=== PATIENT | female | born 1965 | race Caucasian/White ===

== ENCOUNTER → 2018-01-11 | Day surgery (SDC) | payer OTHER ==
[2018-01-07 10:18] VITALS: Ht 170.2 cm; Wt 146.8 kg
[~2018-01-11] VITALS: Ht 170.2 cm; Wt 146.8 kg
[~2018-01-11] MED LIST: 500ML BSS 0.3ML EPI 1:1000PF IRRIG ONE; ACETAMINOPHEN 325 MG TAB PO PRN; AMVISC PLUS 0.8ML SYRINGE INT OCU ONE; ATROPINE SULFATE 0.1 MG/ML 5ML SYR IV PRN; BSS FLUSH ONE; DILT120C68 PO; EpHEDrine SULFATE INJ 50 MG/ML AMP IV PRN; EpINEphrine INJ 1MG/ML AMP 1 MG/ML AMP ONE; FURO-85 PO; LACTATED RINGER'S 1000ML 500 ML IV SCH; LIDOCAINE 3.5% OPH GEL PER APPLICATION CHARGE ONE; LIDOCAINE HCL 1% MPF 2 ML VIAL ONE; LISI-729 PO; LPT/40 PO; MIDAZOLAM HCL 1 MG/ML 2ML VIAL ONE; OCUCOAT 1 ML SOLN IO ONE; POVIDONE-IODINE OP SOLN 30 ML BTL ONE; PROPARACAINE 0.5% OP SOLN PER DROP CHARGE OPR SCH; TOBRAMYCIN/DEXAMETHASONE OPH OINT PER APPLN CHARGE ONE; VNTHFA/IN INH; WARF5TAB7 PO
[2018-01-11] MEDS: PHENYLEPHRINE HCL 2.5% OP SOLN PER DROP CHARGE OPR SCH ×2 (06:47→06:55)
[2018-01-11] MEDS: TROPICAMIDE 1% OP SOLN PER DROP CHARGE OPR SCH ×2 (06:48→06:56)
[2018-01-11] MEDS: CYCLOPENTOLATE HCL 1% OP SOLN PER DROP CHARGE OPR SCH ×2 (06:50→06:57)
[2018-01-11] MEDS: KETOROLAC 0.5% OP SOLN PER DROP CHARGE OPR SCH ×2 (06:51→06:58)
[2018-01-11] MEDS: GATIFLOXACIN OP SOLN PER DROP CHARGE OPR SCH ×2 (06:52→07:00)
--- NOTE | 2018-01-11 07:00 | History & Physical Bridge - SC ---
H&P Re-Evaluation Bridge Note: I have examined the patient, reviewed the History & Physical and in the interval since the performance of the History & Physical I have noted the following changes of clinical significance: Diagnosis: Right Cataract Procedure: Right Cataract Removal with Lens Implant No changes noted
--- NOTE | 2018-01-11 07:46 | [facility] Operative Report ---
Operative Report Date of Service January 11, 2018. Operative Report 1. PREOPERATIVE DIAGNOSIS: Cataract of the right eye. 2. POSTOPERATIVE DIAGNOSIS: Same. 3. PROCEDURE: Phacoemulsification with intraocular lens implantation of the right eye. SURGEON: Dr. Gee Bennett. ANESTHESIA: Topical Lidocaine gel, 1% Non- Preserved intracameral Lidocaine, and monitored intravenous sedation. INDICATIONS FOR THE PROCEDURE: The patient is a 52 - year-old female with a history of cataract of the right eye causing significant visual impairment. The details of the proposed procedure were explained to the patient who asked appropriate questions and following discussion of all risks, benefits and alternatives agreed to have the procedure done. 4. OPERATION AND FINDINGS: DESCRIPTION OF PROCEDURE: After informed consent was obtained, the patient was brought to the Operating Room at the [facility]. The patient was placed in a supine position and then the right eye was prepped and draped in the usual sterile fashion for intraocular surgery. A drop of topical Lidocaine gel was placed in the operative eye. A wire lid speculum was then placed in the fornices. A corneal paracentesis was then created temporally. The Non-Preserved Lidocaine was then instilled into the anterior chamber. The anterior chamber was then pressurized with viscoelastic. A 2.0 mm clear corneal incision was then created temporally. A cystotome was inserted into the anterior chamber and used to create a tear in the anterior lens capsule. This capsular tear was then used to create a small flap and the flap was dragged in a counterclockwise direction in order to create a continuous curvilinear capsulorrhexis. Hydrodissection was accomplished with balanced salt solution. Phacoemulsification of the lens nucleus was then performed in a standard [id number]-yig-xtegddd technique. The phaco time was 9 seconds with an average power of 5 %. The remaining cortical material was removed using irrigation aspiration. The capsular bag was then filled with viscoelastic. A Bausch [employer] Lomb MI60L +23.0 diopters lens was then loaded into the injector and injected into the capsular bag. The remaining viscoelastic was removed with the irrigation aspiration handpiece. The wound was hydrated and then checked and found to be watertight. The intraocular pressure was checked and found to be adequate. The wire lid speculum was removed and the patient's face was cleaned and dried. TobraDex ointment was placed in the inferior fornix. The patient was discharged to the Recovery Room having tolerated the procedure well. There were no complications. The patient will be seen tomorrow in the office for follow-up. I attest to the content of the Intraoperative Record and any orders documented therein. Any exceptions are noted below.
--- NOTE | 2018-01-11 07:46 | Discharge Instructions-SurgCtr ---
Discharge Instructions Date of Service January 11, 2018. Visit Reason for Visit: Cataract Right Eye Discharge Discharge Diagnosis / Problem: cataract Discharge Goals Goal(s): Improve function Activity Recommendations Activity Limitations: per Instructions/Follow-up section Anesthesia . Post Anesthesia Instructions: If you have had General Anesthesia or IV Sedation: * Do not drive today. * Resume driving when surgeon permits. * Do not make important decisions or sign legal documents today. * Call surgeon for: 1. Temperature elevations greater than 101 degrees F. 2. Uncontrollable pain. 3. Excessive bleeding. 4. Persistent nausea and vomiting. 5. Medication intolerance (nausea, vomiting or rash). * For nausea and vomiting use only clear liquids such as: tea, soda, bouillon until nausea subsides, then gradually increase diet as tolerated. * If you have any concerns or questions, call your surgeon's office. If physician is unavailable and it is an emergency, call 911 or go to the nearest emergency room. . Diet Recommendations Home Diet: resume previous diet Procedures Procedures Performed: Right Cataract Phacoemulsification With Intraocular Lens Implant Pending Studies Studies pending at discharge: no Medical Emergencies . Who to Call and When: Medical Emergencies: If at any time you feel your situation is an emergency, please call 911 immediately. . Non-Emergent Contact Non-Emergency issues call your: Oil Change Technician . . "Provider Documentation" section prepared by Gee Bennett. .
[2018-01-11 07:50] VITALS: TEMP 36.8
--- NOTE | 2018-01-11 07:57 | Anesthesia Progress Nt - [facility] ---
Anesthesia Post Op Note Date & Time January 11, 2018 at 07:57 Vital Signs Pain Intensity: 0 Vital Signs Past 12 Hours Date Time Temp Pulse Resp B/P (MAP) Pulse Ox O2 Delivery O2 Flow Rate FiO2 01/11/18 07:50 36.8 54 18 93/46 (62) 98 Room Air 01/11/18 06:20 37.0 57 16 118/78 (91) 99 Room Air Notes Mental Status: alert / awake / arousable, participated in evaluation Pt Amnestic to Procedure: Yes Nausea / Vomiting: adequately controlled Pain: adequately controlled Airway Patency, RR, SpO2: stable & adequate BP & HR: stable & adequate Hydration State: stable & adequate Anesthetic Complications: no major complications apparent
[2018-01-11 08:13] VITALS: BP 116/61; PULSE 54; O2SAT 99
== END | disposition home or self-care (01) ==
LOC: X.SURG 06:07
PROVIDERS: ATTEND Ophthalmology
DX: H26.9 Unspecified cataract (principal); I48.91 Unspecified atrial fibrillation; I10 Essential (primary) hypertension; K21.9 Gastro-esophageal reflux disease without esophagitis; F17.200 Nicotine dependence, unspecified, uncomplicated; E78.5 Hyperlipidemia, unspecified; E66.9 Obesity, unspecified; Z68.43 Body mass index [BMI] 50.0-59.9, adult; Z79.01 Long term (current) use of anticoagulants

== ENCOUNTER → 2018-01-25 | Day surgery (SDC) | payer OTHER ==
[2018-01-20 13:16] VITALS: Ht 170.2 cm; Wt 146.8 kg
[~2018-01-25] VITALS: Ht 170.2 cm; Wt 146.8 kg
[~2018-01-25] MED LIST changes: +PROPARACAINE 0.5% OP SOLN PER DROP CHARGE OPL SCH; -PROPARACAINE 0.5% OP SOLN PER DROP CHARGE OPR SCH
--- NOTE | 2018-01-25 10:26 | History & Physical Bridge - SC ---
H&P Re-Evaluation Bridge Note: I have examined the patient, reviewed the History & Physical and in the interval since the performance of the History & Physical I have noted the following changes of clinical significance: Diagnosis: Left Cataract Procedure: Left Cataract Removal with Lens Implant No changes noted
[2018-01-25] MEDS: PHENYLEPHRINE HCL 2.5% OP SOLN PER DROP CHARGE OPL SCH ×2 (10:29→10:35)
[2018-01-25] MEDS: TROPICAMIDE 1% OP SOLN PER DROP CHARGE OPL SCH ×2 (10:30→10:36)
[2018-01-25] MEDS: CYCLOPENTOLATE HCL 1% OP SOLN PER DROP CHARGE OPL SCH ×2 (10:31→10:37)
[2018-01-25] MEDS: KETOROLAC 0.5% OP SOLN PER DROP CHARGE OPL SCH ×2 (10:32→10:38)
[2018-01-25] MEDS: GATIFLOXACIN OP SOLN PER DROP CHARGE OPL SCH ×2 (10:33→10:43)
--- NOTE | 2018-01-25 11:00 | [facility] Operative Report ---
Operative Report Date of Service January 25, 2018. Operative Report 1. PREOPERATIVE DIAGNOSIS: Cataract of the left eye. 2. POSTOPERATIVE DIAGNOSIS: Same. 3. PROCEDURE: Phacoemulsification with intraocular lens implantation of the left eye. SURGEON: Dr. Gee Bennett. ANESTHESIA: Topical Lidocaine gel, 1% Non- Preserved intracameral Lidocaine, and monitored intravenous sedation. INDICATIONS FOR THE PROCEDURE: The patient is a 52 - year-old female with a history of cataract of the left eye causing significant visual impairment. The details of the proposed procedure were explained to the patient who asked appropriate questions and following discussion of all risks, benefits and alternatives agreed to have the procedure done. 4. OPERATION AND FINDINGS: DESCRIPTION OF PROCEDURE: After informed consent was obtained, the patient was brought to the Operating Room at the [facility]. The patient was placed in a supine position and then the left eye was prepped and draped in the usual sterile fashion for intraocular surgery. A drop of topical Lidocaine gel was placed in the operative eye. A wire lid speculum was then placed in the fornices. A corneal paracentesis was then created temporally. The Non-Preserved Lidocaine was then instilled into the anterior chamber. The anterior chamber was then pressurized with viscoelastic. A 2.0 mm clear corneal incision was then created temporally. A cystotome was inserted into the anterior chamber and used to create a tear in the anterior lens capsule. This capsular tear was then used to create a small flap and the flap was dragged in a counterclockwise direction in order to create a continuous curvilinear capsulorrhexis. Hydrodissection was accomplished with balanced salt solution. Phacoemulsification of the lens nucleus was then performed in a standard gmzwoo-ndx-ahcqqew technique. The phaco time was 9 seconds with an average power of 8 %. The remaining cortical material was removed using irrigation aspiration. The capsular bag was then filled with viscoelastic. A Bausch & Lomb MI60L +22.0 diopters lens was then loaded into the injector and injected into the capsular bag. The remaining viscoelastic was removed with the irrigation aspiration handpiece. The wound was hydrated and then checked and found to be watertight. The intraocular pressure was checked and found to be adequate. The wire lid speculum was removed and the patient's face was cleaned and dried. TobraDex ointment was placed in the inferior fornix. The patient was discharged to the Recovery Room having tolerated the procedure well. There were no complications. The patient will be seen tomorrow in the office for follow-up. I attest to the content of the Intraoperative Record and any orders documented therein. Any exceptions are noted below.
--- NOTE | 2018-01-25 11:00 | Discharge Instructions-SurgCtr ---
Discharge Instructions Date of Service January 25, 2018. Visit Reason for Visit: Cataract Left Eye Discharge Discharge Diagnosis / Problem: cataract Discharge Goals Goal(s): Improve function Medications Stopped Medications Name(s): lasix Activity Recommendations Activity Limitations: per Instructions/Follow-up section Anesthesia . Post Anesthesia Instructions: If you have had General Anesthesia or IV Sedation: * Do not drive today. * Resume driving when surgeon permits. * Do not make important decisions or sign legal documents today. * Call surgeon for: 1. Temperature elevations greater than 101 degrees F. 2. Uncontrollable pain. 3. Excessive bleeding. 4. Persistent nausea and vomiting. 5. Medication intolerance (nausea, vomiting or rash). * For nausea and vomiting use only clear liquids such as: tea, soda, bouillon until nausea subsides, then gradually increase diet as tolerated. * If you have any concerns or questions, call your surgeon's office. If physician is unavailable and it is an emergency, call 911 or go to the nearest emergency room. . Diet Recommendations Home Diet: resume previous diet Procedures Procedures Performed: Left Cataract Phacoemulsification With Intraocular Lens Implant Pending Studies Studies pending at discharge: no Medical Emergencies . Who to Call and When: Medical Emergencies: If at any time you feel your situation is an emergency, please call 911 immediately. . Non-Emergent Contact Non-Emergency issues call your: Horse Exerciser . . "Provider Documentation" section prepared by Gee Bennett. .
[2018-01-25 11:02] VITALS: TEMP 36.2
--- NOTE | 2018-01-25 11:12 | Anesthesia Progress Nt - [facility] ---
Anesthesia Post Op Note Date & Time January 25, 2018 at 11:11 Vital Signs Pain Intensity: 0 Vital Signs Past 12 Hours Date Time Temp Pulse Resp B/P (MAP) Pulse Ox O2 Delivery O2 Flow Rate FiO2 01/25/18 11:02 36.2 82 16 105/64 (78) 100 Room Air 01/25/18 10:12 36.9 65 16 124/83 (97) 99 Room Air Notes Mental Status: alert / awake / arousable, participated in evaluation Pt Amnestic to Procedure: Yes Nausea / Vomiting: adequately controlled Pain: adequately controlled Airway Patency, RR, SpO2: stable & adequate BP & HR: stable & adequate Hydration State: stable & adequate Anesthetic Complications: no major complications apparent
[2018-01-25 11:21] VITALS: BP 111/67; PULSE 68; O2SAT 100
== END | disposition home or self-care (01) ==
LOC: X.SURG 10:00
PROVIDERS: ATTEND Ophthalmology
DX: H26.9 Unspecified cataract (principal); I10 Essential (primary) hypertension; K21.9 Gastro-esophageal reflux disease without esophagitis; I48.91 Unspecified atrial fibrillation; Z88.5 Allergy status to narcotic agent

== ENCOUNTER → 2018-04-19 | Outpatient (CLI) | payer OTHER ==
[~2018-04-19] MED LIST changes: -500ML BSS 0.3ML EPI 1:1000PF IRRIG ONE; -ACETAMINOPHEN 325 MG TAB PO PRN; -AMVISC PLUS 0.8ML SYRINGE INT OCU ONE; -ATROPINE SULFATE 0.1 MG/ML 5ML SYR IV PRN; -BSS FLUSH ONE; -EpHEDrine SULFATE INJ 50 MG/ML AMP IV PRN; -EpINEphrine INJ 1MG/ML AMP 1 MG/ML AMP ONE; -LACTATED RINGER'S 1000ML 500 ML IV SCH; -LIDOCAINE 3.5% OPH GEL PER APPLICATION CHARGE ONE; -LIDOCAINE HCL 1% MPF 2 ML VIAL ONE; -MIDAZOLAM HCL 1 MG/ML 2ML VIAL ONE; -OCUCOAT 1 ML SOLN IO ONE; -POVIDONE-IODINE OP SOLN 30 ML BTL ONE; -PROPARACAINE 0.5% OP SOLN PER DROP CHARGE OPL SCH; -TOBRAMYCIN/DEXAMETHASONE OPH OINT PER APPLN CHARGE ONE
--- NOTE | 2018-04-20 06:35 | PAP/PSG TECHNICIAN REPORT ---
[facility] Associate Financial Planner Polysomnogram Report Study name: None Report date: 04/20/2018 Study date: 04/19/2018 Referring Physician: Dr. Brewer Name: MAYTE CHRISTIE Interpreting Physician: Dayana Brewer M.D. Date of : 1965 Associate Financial Planner: Yann Joiner RPSGT. Sex: Female Age: 53 StudyType: PSG Weight: 324 lbs Height: 53 years, Height 5' 7" BMI: 50.74 Medications: LIPITOR 40 MG, LASIX 20 MG, COUMADIN 5 MG, VENTOLIN HFA 108 90 JONO, LISINOPRIL 5 MG, Patient History PATIENT HAS HISTORY OF PAROXYSMAL AFIB, SNORING AND HYPERTENION. SHE ALSO HAS HISTORY OF DAYTIME SLEEPINESS AND LACK OF ENERGY. SHE IS HERE TODAY FOR AN EVALUATION FOR MAYELIN. ESS = 8 RM 5 Parameters Monitored NPSG: E1-M2, E2-M1, Fp1-M2, Fp2-M1, F3-M2, F4-M2, F4-M1, C3-M2, C4-M2, C4-M1, O1-M2, O2-M2, O2-M1, T3-M2, T4-M1, P3-M2, P4-M1, CHIN1, CHIN2, HR, EKG, Legs, PFLOW, SNOR, FLOW, CFLOW, Tidal Volume, THOR, ABDO, SpO2, PLTH, CPRESS, ETCO2 Wave, ETCO2, pH Sleep Architecture Sleep Stages Time at Lights Off 9:02:51 PM STAGES Time (min.) TST (%) Time at Lights On 5:19:51 AM Wake 146.0 -- Total Recording Time (TRT) 497.50 min. N1 34.0 10 Total Sleep Period (TSP) 392.5 min. N2 200.5 57 Total Sleep Time (TST) 351.0min. N3 60.5 17 Awake Time 146.5 min. REM 56.0 16 Wake after Sleep Onset 47.0 min. Sleep Efficiency (SE) 71 % Sleep Onset Latency (DEBORAH) 99.0 min. Number of Stage 1 Shifts None Awakenings 28 Stage Changes 89 Number of REM periods 4 REM 56.0 16 REM Latency 109.5 min. NREM 295.0 84 Body Position Analysis Supine Right Left Side Prone Vertical Total Sleep Time (min.) 98.6 295.1 44.8 339.85 0.0 0.0 Total Sleep Time (%) 3% 84% 13% 97 0% N/A% Total Sleep Time REM (min.) 0.0 56.0 0.0 None 0.0 0.0 Total Sleep Time NREM (min.) 11.1 239.1 44.8 None 0.0 0.0 Intermittent Wake (min.) 87.4 38.2 20.3 None 0.0 0.0 Total Sleep Period (%) 3% None None None None None Arousals Myoclonus (PLM) * Events Count Index Events Count Index Spontaneous 29 5 Events Awake (PLMW) 202 83.0 Respiratory 3 0.5 Events Asleep w/ Arousal (PLMA) 12 2.1 PLM 12 2 Events Asleep w/o Arousal (PLMS) 96 16.4 Snoring 13 2 Total Asleep 108 18.5 Total 56 10 Total 310 37 Respiratory Analysis * CA OA MA CH H RERA Total Count 0 5 0 0 29 2 34 Index 0.0 0.9 0.0 0 5.0 0 6.2 Mean Duration 0.0 20.2 0.0 0.00 21.4 17.5 21.0 Longest Duration 0.0 40.1 0.0 0.00 0.0 18.1 45.6 Respiratory Event Summary Total Supine ~Supine Right Left Prone REM NREM Apneas Count 5 0 5 5 0 N/A 5 0 Index 0.9 0 1 1.0 0.0 N/A 5 0 Hypopneas (4% Desat) Count 29 1 28 25 3 N/A 17 12 Index 5.0 5.4 5 5.1 4.0 N/A 18.2 2.4 Apneas & All Hypopneas Count 34 1 33 30 3 N/A 22 12 Index 5.8 5 6 6 4 N/A 23.6 2.4 Respiratory Events (Carpet Installation Specialist+All Hyp+RERA) Count 34 1 35 32 3 N/A 22 12 Index 6.2 5 6 6.5 4.0 N/A 25.7 2.4 Respiratory Related Arousal Count 3 1 3 2 1 N/A 2 1 Index 0.5 0 1 0 1 N/A 2 0 Snoring Analysis Supine Right Left Prone REM NREM Total Snore duration 93.2 min Snores count 166 2,833 98 N/A 247 2,850 3,097 Snore mean duration 1.8 Sec Snores index 893 576 131 N/A 264.6 579.7 529.4 TST with snoring (%) 26.5% SpO2 Analysis Total REM NREM Awake <50% 0.0 min. 0.0 min. 0.0 min. 0.0 min. 51 - 60% 0.0 min. 0.0 min. 0.0 min. 0.0 min. 61 - 70% 0.0 min. 0.0 min. 0.0 min. 0.0 min. 71 - 80% 0.0 min. 0.0 min. 0.0 min. 0.0 min. 81 - 90% 146.9 min. 29.6 min. 110.9 min. 6.4 min. 91 - 100% 349.7 min. 26.4 min. 184.0 min. 139.3 min. Average 92 90 91 94 Minimum SpO2 86 86 88 88 Desaturation Event Index 4.5 20.4 2.2 3.3 # Desat. Events below 89% 11 11 N/A N/A Time(%) with Saturation below 89% 1.7 1.5 0.1 0.0 Time(min.) with Saturation below 89% 8.2 7.5 0.7 0.1 Heart Rate Analysis End Tidal CO2 Analysis Min (bpm) Max (bpm) Average (bpm) TSP (mins) % of TSP Awake 52 105 76 Above 55 mmHg 0.0 0.0 NREM 50 127 75 50-55 mmHg 0.0 0.0 REM 53 95 71 45-50 mmHg 0.0 0.0 Overall 50 127 75 40-45 mmHg 73.8 21.0 35-40 mmHg 219.6 62.6 30-35 mmHg 32.4 9.2 Average ETCO2 0.3 Supplemental O2 Values Minimum O2 level: None Value Start Time End Time Associate Financial Planner Comments Mrs. Christie slept in the right, left adn supine positions. Irregular EKG noted at times. Leg movements noted. No bruxism noted. Snoring was noted and scored as a 5 on a scale of 1 through 5. (0=no snoring, 5=snoring loud enough to be heard through a closed door or down the davey way) Mrs. Christie awoke to use the restroom 0 times during the night. Mrs. Christie stated I did not sleep as well as I do when I am in my own bed. The final report will be interpreted and signed by a sleep physician. The completed physician report will then be placed in the patient medical record. Therapy (cm H2O) 0 TIB (min.) 497.0 TST (min.) 351.0 Sleep Onset (min.) 99.0 REM Onset From Sleep (min.) 109.5 Sleep Efficiency % 71 Wakefulness (%) 29 Wakefulness (min.) 146.5 NREM 1 (%) 10 NREM 1 (min.) 34.0 NREM 2 (%) 57 NREM 2 (min.) 200.5 NREM 3 (%) 17 NREM 3 (min.) 60.5 REM (%) 16 REM (min.) 56.0 # Arousals 56 Arousal Index 10 # Snore 3,097 Snore Index 529.4 AHI 5.8 AHI Supine 5 AHI Non-Supine 6 NREM AHI 2.4 REM AHI 23.6 RDI 6.2 # Obstructive Apnea 5 # Central Apnea 0 # Mixed Apnea 0 # Hypopneas 29 RERAs 2 Total Respiratory Events 36 Time Below SpO2 89% (min.) 8.2 Mean NREM SpO2 (%) 91 Mean REM SpO2 (%) 90 Mean Sleep SpO2 (%) 91 Min NREM SpO2 (%) 88 Min REM SpO2 (%) 86 Position Supine (min.) 98.6 Position Non-supine (min.) 339.9 LM Index Sleep 18.5 LM Index NREM 17.5 LM Index REM 23.6 Mean Heart Rate (bpm) 75 Min Heart Rate (bpm) 50
== END | disposition home or self-care (01) ==
LOC: C.NEUR 20:00
PROVIDERS: ATTEND Internal Medicine
DX: G47.33 Obstructive sleep apnea (adult) (pediatric) (principal)